=== PATIENT | male | born 1985 | race Caucasian/White ===

== ENCOUNTER 2019-12-31 18:07 | Emergency (ER) | payer MEDICAID ==
[~2019-12-31] VITALS: Ht 182.9 cm; Wt 70.0 kg
[~2019-12-31 18:07] MED LIST: IBUP-1985 PO
[2019-12-31 18:09] VITALS: BP 109/70
[2019-12-31] MEDS ORDERED: NO HOME MEDS (18:13)
[2019-12-31] MEDS ORDERED: ondansetron 4mg rapidly disintigrating tab PO ONE (18:55)
[2019-12-31] MEDS ORDERED: HYDROcodone/acetaminophen 5mg/325mg tablet PO ONE (18:55)
[2019-12-31] MEDS ORDERED: ONDA4TAB6 PO (18:56)
[2019-12-31] MEDS ORDERED: HYDR-4383 PO (18:56)
== END 2019-12-31 19:23 | disposition home or self-care (01) ==
LOC: ER 18:07
DX: S62.524A Nondisplaced fracture of distal phalanx of right thumb, initial encounter for closed fracture (principal); M79.644 Pain in right finger(s); Z79.899 Other long term (current) drug therapy; W22.8XXA Striking against or struck by other objects, initial encounter; Y93.89 Activity, other specified; Y99.8 Other external cause status; Y92.89 Other specified places as the place of occurrence of the external cause
CPT/HCPCS: 29130; 73140; 99283

== ENCOUNTER 2020-10-14 20:46 | Emergency (ER) | payer MEDICAID ==
[~2020-10-14] VITALS: Ht 182.9 cm; Wt 69.1 kg
[~2020-10-14 20:46] MED LIST changes: +HYDR-4383 PO; -IBUP-1985 PO; +NO HOME MEDS; +ONDA4TAB6 PO
[2020-10-14 20:56] VITALS: BP 102/69
--- NOTE | 2020-10-14 22:38 | NUR ---
Patient reports pain to his left neck which started last night and got worse today 02/04; took Tylenol prior to arrival with no relief.
[2020-10-14] MEDS ORDERED: ketorolac tromethamine 15mg/ml inj. IM ONE (22:45)
[2020-10-14] MEDS ORDERED: orphenadrine citrate 60mg/2ml inj. IM ONE (22:45)
[2020-10-14] MEDS ORDERED: diazepam 5mg tablet PO ONE (22:45)
[2020-10-14] MEDS ORDERED: IBUP-1984 PO (22:46)
[2020-10-14] MEDS ORDERED: ORPH100T2 PO (22:46)
== END 2020-10-14 23:28 | disposition home or self-care (01) ==
LOC: ER 20:46
DX: M62.838 Other muscle spasm (principal); M54.2 Cervicalgia; Z79.899 Other long term (current) drug therapy
CPT/HCPCS: 96372; 99284; J1885; J2360